=== PATIENT | female | born 1945 | race Caucasian/White ===

== ENCOUNTER → 2016-06-21 | Outpatient (CLI) | payer OTHER ==
--- NOTE | 2016-06-21 17:01 | MA ---
Screening Digital Mammogram With iCAD Analysis Clinical Indications: Routine screening. An aunt was diagnosed with breast cancer in her 60s and a gr andmother in her 80s. The patient has had a benign right breast biopsy. Technique: Standard cephalocaudal and mediolateral oblique projections are obtained. This examination is processed by the iCAD computer aided detection system. Comparison: June 2015, April 2014, March 2013, March 2012, March 2011, January 2010, September 2008. Breast density: Type B; Scattered fibroglandular densities. Findings: CAD was reviewed. No masses, suspicious calcifications or other signs of malignancy are see n. There has been no significant change in the appearance of either breast. Impression: Negative mammogram. BI-RADS 1. Recommendation: Routine mammographic screening in one year as long as physical examination is negativ [facility] will send a result letter to the patient. Negative mammography should not preclude additional workup of a clinically suspicious finding. The patient's information is entered into a reminder system with a target due date for her next mammo gram.
== END ==
LOC: FIMAGING 15:11
DX: Z12.31 Encounter for screening mammogram for malignant neoplasm of breast (principal); Z80.3 Family history of malignant neoplasm of breast
CPT/HCPCS: G0202

== ENCOUNTER 2016-10-19 06:00 | Inpatient (IN) | payer OTHER ==
[~2016-10-19 06:00] MED LIST: ACETAMINOPHEN 325 MG TAB PO ONE; CHLORHEXIDINE GLUC HIBICLENS 118 ML BTL TP ONE; DEXAMETHASONE 4 MG/ML VIAL IVP ONE; FAMOTIDINE 20 MG TAB PO ONE; ROPI/epiNEPH/KETOROLAC JOINT COCKTAIL IU ONE; TRANEXAMIC ACID 3,000 MG in NS 50 ML IRR ONE
[2016-10-19] MEDS ORDERED: ACETAMINOPHEN 325 MG TAB ONE (06:09)
[2016-10-19] MEDS ORDERED: CEFAZOLIN 2 GM/DEXTROSE/100 ML BAG IV ONE (06:09)
[2016-10-19] MEDS ORDERED: FAMOTIDINE 20 MG TAB ONE (06:09)
[2016-10-19] MEDS ORDERED: DEXAMETHASONE 4 MG/ML VIAL ONE ×2 (06:09→08:00)
[2016-10-19] MEDS ORDERED: LIDOCAINE 1% 5 ML SDV ONE (06:12)
[2016-10-19] MEDS ORDERED: LR 1,000 ML IV ONE (06:43)
[2016-10-19] MEDS ORDERED: LIDOCAINE 1% 5 ML SDV ID PRN (06:43)
[2016-10-19] MEDS ORDERED: VANCOMYCIN 1 GM VIAL IV ONE (07:12)
[2016-10-19] MEDS ORDERED: TRANEXAMIC ACID 3,000 MG/50 ML BAG IRR ONE (07:12)
[2016-10-19] MEDS ORDERED: ceFAZolin 2 GM/DEXTROSE 100 ML IV ONE (07:30)
[2016-10-19] MEDS ORDERED: PROPOFOL/EMULSION 500 MG/50 ML BOTTLE IV ONE (07:51)
[2016-10-19] MEDS ORDERED: LIDOCAINE 2% 5 ML SDV ONE (07:54)
[2016-10-19] MEDS ORDERED: PROPOFOL 200 MG/20 ML VIAL ONE (07:54)
[2016-10-19] MEDS ORDERED: ONDANSETRON 4 MG/2 ML VIAL ONE (08:00)
[2016-10-19] MEDS ORDERED: ROPIVACAINE HCL 150 MG/30 ML INJ ONE (08:00)
[2016-10-19] MEDS ORDERED: MIDAZOLAM 2 MG/2 ML VIAL ONE (08:04)
[2016-10-19] MEDS ORDERED: fentaNYL 100 MCG/2 ML INJ ONE ×2 (08:30→10:03)
[2016-10-19] MEDS ORDERED: LACTULOSE 20 GM/30 ML UDCUP PO PRN (09:42)
[2016-10-19] MEDS ORDERED: ONDANSETRON DISINTEGRATING 4 MG TAB PO PRN (09:42)
[2016-10-19] MEDS ORDERED: DIPHENOXYLATE/ATROPINE LOMOTIL 1 TAB PO PRN (09:42)
[2016-10-19] MEDS ORDERED: ONDANSETRON 4 MG/2 ML VIAL IVP PRN (09:42)
[2016-10-19] MEDS ORDERED: PROMETHAZINE HCL 25 MG SUPPR PR PRN (09:42)
[2016-10-19] MEDS ORDERED: PHARMACY PAIN CONSULT 1 EA MISC PRN (09:42)
[2016-10-19] MEDS ORDERED: TEMAZEPAM 15 MG CAP PO PRN (09:42)
[2016-10-19] MEDS ORDERED: CYCLOBENZAPRINE 10 MG TAB PO PRN (09:42)
[2016-10-19] MEDS ORDERED: MAGNESIUM HYDROXIDE 30 ML UDCUP PO PRN (09:42)
[2016-10-19] MEDS ORDERED: diphenhydrAMINE 25 MG CAP PO PRN (09:42)
[2016-10-19] MEDS ORDERED: BISACODYL 10 MG SUPP PR PRN (09:42)
[2016-10-19] MEDS ORDERED: METOCLOPRAMIDE 10 MG/2 ML VIAL IVP PRN (09:42)
[2016-10-19] MEDS ORDERED: POLYETHYLENE GLYCOL 3350 17 GM PKT PO PRN (09:42)
--- NOTE | 2016-10-19 09:42 | POSTOPPROG ---
Post Op Note Date of Operation: 10/19/16 Surgeon: Christiano Link Glass Polisher: skyler link Anesthesiologist: dr. ibrahim Anesthesia: Spinal, Other (Specify) Pre-op Diagnosis: left knee OA Post-op Diagnosis: same Indication: left knee pain due to OA that failed conservative measures Procedure: L TKA Findings: severe knee OA Inf/Abcess present in the surg proc area at time of surgery?: No EBL: 50-100
[2016-10-19] MEDS ORDERED: LR 1,000 ML IV SCH (10:00)
[2016-10-19] MEDS: ACETAMINOPHEN 325 MG TAB PO SCH ×3 (11:27→23:47)
[2016-10-19] MEDS: oxyCODONE IR 5 MG TAB PO PRN ×3 (11:28→22:36)
[2016-10-19] MEDS: ceFAZolin 2 GM/DEXTROSE 100 ML IV SCH ×2 (13:20→21:26)
[2016-10-19] MEDS ORDERED: VALSARTAN 160 MG TAB PO SCH (21:00)
[2016-10-19] MEDS ORDERED: NON-FORMULARY NEW DRUG (Valsartan/Hydrochlorothiazide [Valsartan-Hctz 160-12.5 Mg Tab] 1 E PO SCH (21:00)
[2016-10-19] MEDS ORDERED: PRAVASTATIN SODIUM 40 MG TAB PO SCH (21:00)
[2016-10-19] MEDS ORDERED: HYDROCHLOROTHIAZIDE 12.5 MG CAP PO SCH (21:00)
[2016-10-19] MEDS: ASPIRIN 325 MG TAB PO SCH (21:23)
[2016-10-19] MEDS: FAMOTIDINE 20 MG TAB PO SCH (21:24)
[2016-10-19] MEDS: SENNOSIDES/DOCUSATE SODIUM TAB PO SCH (21:24)
[2016-10-20 05:07] LABS: HEMATOCRIT 40.2 % (38.0-47.0); HEMOGLOBIN 13.7 g/dL (12.6-16.3)
[2016-10-20] MEDS: oxyCODONE IR 5 MG TAB PO PRN ×2 (06:01→11:16)
[2016-10-20] MEDS: ACETAMINOPHEN 325 MG TAB PO SCH ×2 (06:01→11:15)
[2016-10-20 07:20] VITALS: BP 103/62; PULSE 67; RESP 14; TEMP 97.8; O2SAT 96
--- NOTE | 2016-10-20 08:56 | SOAPPROG ---
SOAP Progress Note Assessment/Plan: Assessment: Patient is doing well POD 1 s/p L TKA Pain management: pain is well controlled on oral pain meds. VTE ppx: recommend aspirin daily for 3 weeks, cont CORRINA and SCDs Anemia: level is expected initially postop. Asymptomatic. Continue to monitor D/c planning: d/c to home today pending release from PT Plan: 10/20/16 08:55 Subjective: Cheryle is doing well today, denies SOB, chest pain and N/V Objective: Vital Signs Temp Pulse Resp BP Pulse Ox 36.6 C 67 14 103/62 96 10/20/16 07:18 10/20/16 07:18 10/20/16 07:18 10/20/16 07:18 10/20/16 07:18 Laboratory Results 10/20/16 04:23 10/19/16 10/20/16 10/21/16 05:59 05:59 05:59 Intake Total 2260 Output Total 680 1 Balance 1580 -1 LLE: incision dressing is clean and dry, NVI, +pf/df ICD10 Worksheet Patient Problems: Problems Problem Status Onset Primary localized osteoarthritis of left knee Acute
[2016-10-20] MEDS: FAMOTIDINE 20 MG TAB PO SCH (09:04)
[2016-10-20] MEDS: ASPIRIN 325 MG TAB PO SCH (09:04)
[2016-10-20] MEDS: SENNOSIDES/DOCUSATE SODIUM TAB PO SCH (09:04)
--- NOTE | 2016-10-20 09:40 | GDS ---
[f rep st] DISCHARGE SUMMARY ADMISSION DIAGNOSIS: Left knee osteoarthritis. DISCHARGE DIAGNOSIS: Left knee osteoarthritis. PROCEDURE: Left total knee arthroplasty. VTE PROPHYLAXIS: Aspirin recommended, 3 weeks, daily. BRIEF DESCRIPTION OF HOSPITAL STAY: Patient was admitted for an elective joint arthroplasty. The p atient tolerated the procedure well and has passed physical therapy. The patient was given appropri ate antibiotic prophylaxis and venous thromboembolism prophylaxis. The patient's pain was well cont rolled on oral pain medication, patient was holding down food, and had urinated. Decision was made to discharge the patient. The patient was given post-operative prescriptions pre-operatively. PLAN: Please follow up as scheduled with Dr. Garner's office November 10 at 2:15 p.m. /[id number]/MODL
--- NOTE | 2016-10-20 14:35 | GOP ---
[f rep st] OPERATIVE REPORT DATE OF OPERATION: 10/19/2016 SURGEON: Francoise Garner MD FORGING ENGINEER: ROSMERY Braswell. ANESTHESIA: Spinal. PREOPERATIVE DIAGNOSIS: Left knee osteoarthritis. POSTOPERATIVE DIAGNOSIS: Left knee osteoarthritis. PROCEDURE PERFORMED: Left total knee replacement. FINDINGS/PATHOLOGY: Severe tricompartmental osteoarthritis. ESTIMATED BLOOD LOSS: 30 cc. INDICATIONS: This is a 71-year-old female with severe and progressive pain and deformity of the left knee unresponsive to conservative care. Risks and benefits of the surgical intervention were explained in detail. DESCRIPTION OF PROCEDURE: The patient was brought to the operative room and placed on the table in the supine position. Spinal anesthesia was induced without difficulty. A pneumatic tourniquet was applied about the left proximal thigh, and the leg was prepped and draped in a sterile fashion. The leg soler was applied. After exsanguination by elevation the tourniquet was inflated to 250 mm of mercury. Incision was made anterior medial from the tibial tuberosity to a point 2 cm proximal to the superior pole of the patella. Medial parapatellar arthrotomy was carried out from the superior pole of the patella and posteriorly in line with the fibers of the Type 2 VMO. The medial collateral ligament was elevated and the infrapatellar fat pad was resected. The patella was everted and the articular surface was excised. A 32 mm patellar button was placed. The distal femoral guide hole was drilled and the 6 degree alignment abby was placed. A 10 mm distal femoral cut was made without difficulty. Attention was turned to the tibia and a standard 9 mm cut based on the tibial condyle was performed. The tibial articular surface was excised without difficulty. Attention was turned back to the femur and a size 2 Triathlon femoral cutting block was positioned. Anterior, posterior, and chamfer cuts were made, followed by the intercondylar box cut. The knee was extended and the remnants of the medial and lateral meniscus were excised. The posterior capsule was injected with ropivacaine, epinephrine and Toradol. A size 2 MIS mini-keel tibial tray was positioned. Trial reduction was then carried out. There was excellent range of motion, alignment, and stability using the 9 mm polyethylene. All trials were then removed. The joint was thoroughly irrigated and carefully dried. Two packages of cement and 2 grams of vancomycin were mixed in the vacuum mixer and placed on the fixation surfaces of all surfaces of the components. The components were implanted and all excess cement was thoroughly removed. The permanent 9 mm polyethylene X3 was placed without difficulty. The tourniquet was deflated and all bleeders were coagulated. The wound was thoroughly irrigated and closed using interrupted sutures of 2-0 Vicryl for the joint capsule. The subcu was closed with 3-0 Vicryl and the skin with 4-0 Monocryl. Dermabond and Steri-Strips were applied followed by a compressive dressing. The patient was then moved from the operating room to the recovery room in good condition, having tolerated the procedure well. /[id number]/MODL MTDD
== END 2016-10-20 12:15 | disposition home or self-care (01) | DRG 470 ==
LOC: F3N 06:00
PROVIDERS: ADMIT Orthopaedic Surgery; ATTEND Orthopaedic Surgery
PROC: 0SRD0J9 Replacement of Left Knee Joint with Synthetic Substitute, Cemented, Open Approach (ICD-10-PCS; principal; 2016-10-19 08:15)
DX: M17.12 Unilateral primary osteoarthritis, left knee (principal)
CPT/HCPCS: 97110-GP; 97116-GP; 97161-GP; 97165-GO; 97530-GP; C1713; G8978-GP-CI; G8979-GP-CI; G8980-GP-CI; G8987-GO-CI; G8988-GO-CI; G8989-GO-CI; J0171; J0690; J1100; J1885; J2250; J2405; J2704; J2795; J3010; J3370

== ENCOUNTER → 2017-07-12 | Outpatient (CLI) | payer OTHER | LOC: FIMAGING 13:15 | PROVIDERS: ATTEND Family Medicine | DX: Z12.31 Encounter for screening mammogram for malignant neoplasm of breast (principal) ==

== ENCOUNTER → 2018-08-01 | Outpatient (CLI) | payer OTHER | LOC: FIMAGING 14:10 | PROVIDERS: ATTEND Family Medicine | DX: Z12.31 Encounter for screening mammogram for malignant neoplasm of breast (principal); Z85.3 Personal history of malignant neoplasm of breast ==